=== PATIENT | female | born 1965 | race African-American/Black ===

== ENCOUNTER 2017-04-10 19:00 | Emergency (ER) | payer SELFPAY ==
[~2017-04-10] VITALS: Ht 157.5 cm; Wt 89.8 kg
[~2017-04-10 19:00] MED LIST: ACET325T9 PO; AMLO5TAB2 PO; CITA10TA8 PO; LISI40TA PO
[2017-04-10 19:20] VITALS: BP 193/88
[2017-04-10] MEDS ORDERED: fentaNYL PF VIAL 100 MCG/2 ML VIAL IV ONE (21:15)
[2017-04-10] MEDS ORDERED: ONDANSETRON PF 4 MG/2 ML VIAL. IV ONE (21:15)
[2017-04-10 21:52] LABS: BASO % 0 % (0-3); EOS % 0 % (0-3); HEMATOCRIT 38.6 % (36.0-47.0); LYMPH # 3.2 x10^3/uL (1.0-4.8); LYMPH % 33 % (24-48); MEAN CORPUSCULAR HEMOGLOBIN 30 pg (25-35); MEAN CORPUSCULAR HGB CONC 34 g/dL (31-37); MEAN CORPUSCULAR VOLUME 89 fL (79-100); MONO % 9 % (0-9); NEUT % 58 % (31-73); PLATELET COUNT 252 x10^3/uL (140-400); RED BLOOD COUNT 4.32 x10^6/uL (3.50-5.40); RED CELL DISTRIBUTION WIDTH 13.4 % (11.5-14.5); WHITE BLOOD COUNT 9.9 x10^3/uL (4.0-11.0)
[2017-04-10 22:01] LABS: CALCIUM 9.2 mg/dL (8.5-10.1); GFR 70.5; POTASSIUM 3.3 mmol/L (3.5-5.1)
[2017-04-10 22:07] LABS: ALBUMIN 3.2 g/dL (3.4-5.0); ALBUMIN/GLOBULIN RATIO 0.6 (1.0-1.7); TOTAL BILIRUBIN 0.5 mg/dL (0.2-1.0); TOTAL PROTEIN 8.3 g/dL (6.4-8.2)
--- NOTE | 2017-04-10 22:17 | PHYS DOC ---
Past Medical History Past Medical History: Depression, Hypertension Past Surgical History: , Other Additional Past Surgical Histo: heart cath Alcohol Use: Occasionally Drug Use: None Adult General Chief Complaint Chief Complaint: NAUSEA/VOMITING/DIARRHA HPI HPI Patient is a 52 year old AA male who presents with intermittent daily nausea, vomiting and diarrhea for the past 2 days. Patient last vomited 1 hour prior to ED arrival. Vomit includes stomach contents. No hematemesis or bilious vomiting. Patient also reports multiple nonbloody loose stools. Reports body cramps, aches and subjective fever. Patient reports recent GI illness exposure from family members. Patient is able to tolerate some fluids but reports decreased appetite. Patient has been able to take her blood pressure medications. No prior abdominal surgeries. Review of Systems Review of Systems Review symptoms as per history of present illness. All other review symptoms are negative.] All other systems were reviewed and found to be within normal limits, except as documented in this note. Current Medications Current Medications Current Medications Medications (Trade) Dose Ordered Sig/Avi Start Time Stop Time Status Last Admin Dose Admin Fentanyl Citrate (Fentanyl 2ml Vial) 50 mcg 1X ONCE 04/10/17 21:15 04/10/17 21:16 DC 04/10/17 21:37 50 MCG Ondansetron HCl (Zofran) 8 mg 1X ONCE 04/10/17 21:15 04/10/17 21:16 DC 04/10/17 21:36 8 MG Allergies Allergies Allergies Coded Allergies Type Severity Reaction Last Updated Verified codeine Allergy Intermediate diaphoretic, dizzy 12/04/13 No Physical Exam Physical Exam Constitutional: Well developed, well nourished, no acute distress, non-toxic appearance. [] HENT: Normocephalic, atraumatic, bilateral external ears normal, oropharynx moist, no oral exudates, nose normal. [] Eyes: PERRLA, EOMI, conjunctiva normal, no discharge. [] Neck: Normal range of motion, no tenderness, supple, no stridor. [] Cardiovascular:Heart rate regular rhythm, no murmur [] Lungs & Thorax: Bilateral breath sounds clear to auscultation [] Abdomen: Bowel sounds normal, soft, no tenderness, no masses, no pulsatile masses. [] Skin: Warm, dry, no erythema, no rash. [] Back: No tenderness, no CVA tenderness. [] Neurologic: Alert and oriented X 3, normal motor function, normal sensory function, no focal deficits noted. [] Current Patient Data Vital Signs Vital Signs Date Time Temp Pulse Resp B/P (MAP) Pulse Ox O2 Delivery O2 Flow Rate FiO2 04/10/17 21:37 18 99 Room Air 04/10/17 19:20 99.1 54 193/88 (123) 99.1 Lab Values Laboratory Tests Test 04/10/17 21:30 White Blood Count 9.9 x10^3/uL (4.0-11.0) Red Blood Count 4.32 x10^6/uL (3.50-5.40) Hemoglobin 13.0 g/dL (12.0-15.5) Hematocrit 38.6 % (36.0-47.0) Mean Corpuscular Volume 89 fL (79-100) Mean Corpuscular Hemoglobin 30 pg (25-35) Mean Corpuscular Hemoglobin Concent 34 g/dL (31-37) Red Cell Distribution Width 13.4 % (11.5-14.5) Platelet Count 252 x10^3/uL (140-400) Neutrophils (%) (Auto) 58 % (31-73) Lymphocytes (%) (Auto) 33 % (24-48) Monocytes (%) (Auto) 9 % (0-9) Eosinophils (%) (Auto) 0 % (0-3) Basophils (%) (Auto) 0 % (0-3) Neutrophils # (Auto) 5.7 x10^3uL (1.8-7.7) Lymphocytes # (Auto) 3.2 x10^3/uL (1.0-4.8) Monocytes # (Auto) 0.9 x10^3/uL (0.0-1.1) Eosinophils # (Auto) 0.0 x10^3/uL (0.0-0.7) Basophils # (Auto) 0.0 x10^3/uL (0.0-0.2) Sodium Level 139 mmol/L (136-145) Potassium Level 3.3 mmol/L (3.5-5.1) L Chloride Level 106 mmol/L (98-107) Carbon Dioxide Level 21 mmol/L (21-32) Anion Gap 12 (6-14) Blood Urea Nitrogen 13 mg/dL (7-20) Creatinine 1.0 mg/dL (0.6-1.0) Estimated GFR (Cockcroft-Gault) 70.5 BUN/Creatinine Ratio 13 (6-20) Glucose Level 85 mg/dL (70-99) Calcium Level 9.2 mg/dL (8.5-10.1) Total Bilirubin 0.5 mg/dL (0.2-1.0) Aspartate Amino Transferase (AST) 18 U/L (15-37) Alanine Aminotransferase (ALT) 11 U/L (14-59) L Alkaline Phosphatase 67 U/L (46-116) Total Protein 8.3 g/dL (6.4-8.2) H Albumin 3.2 g/dL (3.4-5.0) L Albumin/Globulin Ratio 0.6 (1.0-1.7) L Lipase 75 U/L (73-393) Laboratory Tests 04/10/17 21:30 Laboratory Tests 04/10/17 21:30 EKG EKG [] Radiology/Procedures Radiology/Procedures [] Course & Med Decision Making Course & Med Decision Making Pertinent Labs and Imaging studies reviewed. (See chart for details) [Nations abdomen soft, nonsurgica reevaluation l. IV fluids, pain and nausea medications given with symptomatic relief. Basic labs checked. Patient's symptoms consistent with GI illness prevalent community. We'll continue supportive care with PCP follow-up. Return precautions reviewed.] Dragon Disclaimer Dragon Disclaimer This electronic medical record was generated, in whole or in part, using a voice recognition dictation system. Departure Departure Impression: Primary Impression: Nausea vomiting and diarrhea Disposition: 01 HOME, SELF-CARE Condition: GOOD Referrals: NO PCP (PCP) Patient Instructions: Diarrhea, [id number], Nausea and Vomiting, [id number] Additional Instructions: You were evaluated in the emergency department for nausea vomiting and diarrhea. Basic labs were checked and show mild decrease in potassium level. Please drink clear liquids, preferably Gatorade or Powerade and take nausea medications as directed. Take Pepto-Bismol as needed for diarrhea and follow-up with your PCP for reevaluation in 2-3 days if symptoms persist. In the meantime , if you develop new or worsening symptoms, please return to the emergency department. DONNIE FAM DO Apr 10, 2017 22:17
[2017-04-10 22:45] LABS: BILIRUBIN,URINE MODERATE (NEG); GLUCOSE,URINE NEGATIVE (NEG); NITRITE,URINE NEGATIVE (NEG); PROTEIN,URINE 100 mg/dL (NEG-TRACE)
[2017-04-10 22:57] LABS: BACTERIA,URINE MODERATE /HPF (0-FEW); RBC,URINE TNTC /HPF (0-2); SQUAMOUS EPITHELIAL CELL,UR FEW /LPF; WBC,URINE 20-40 /HPF (0-4)
== END 2017-04-10 23:40 | disposition home or self-care (01) ==
LOC: ER 19:00
DX: R11.2 Nausea with vomiting, unspecified (principal); R19.7 Diarrhea, unspecified; I10 Essential (primary) hypertension; Z88.5 Allergy status to narcotic agent
CPT/HCPCS: 36415; 80053; 81001; 83690; 85025; 87086; 96374; 96375; 99284; J2405; J3010